=== PATIENT | male | born 1950 | race Hispanic/Latino ===

== ENCOUNTER 2018-12-30 14:49 | Emergency (ER) | payer OTHER ==
[2018-12-30] MEDS ORDERED: ONDANSETRON HCL 4 MG/2 ML VIAL ONE (15:08)
[2018-12-30 15:26] LABS: APPEARANCE,URINE Clear (CLEAR); BILIRUBIN,URINE Negative (NEGATIVE); COLOR,URINE Yellow (YELLOW); GLUCOSE, URINE (UA) >=1000 mg/dL (NEGATIVE); KETONES,URINE Negative (NEGATIVE); LEUKOCYTE ESTERASE ,URINE Small (NEGATIVE); NITRATE,URINE Negative (NEGATIVE); OCCULT BLOOD,URINE Negative (NEGATIVE); PROTEIN,URINE Negative (NEGATIVE)
[2018-12-30 15:33] LABS: BASOPHILS % (AUTO) 0.4 % (0.0-5.0); EOSINOPHILS % (AUTO) 0.5 % (0.0-8.0); HEMATOCRIT 43.2 % (42-54); LYMPHOCYTES % (AUTO) 10.2 % (21.0-51.0); MEAN CORPUSCULAR HEMOGLOBIN 30.8 pg (27.0-33.0); MEAN CORPUSCULAR VOLUME 90.7 fL (79-99); MONOCYTES % (AUTO) 6.2 % (3.0-13.0); NEUTROPHILS % (AUTO) 82.7 % (40.0-77.0); PLATELET COUNT (AUTO) 288 K/uL (130-400); RED BLOOD CELL COUNT(AUTO) 4.77 MIL/uL (4.50-6.20); RED CELL DISTRIBUTION WIDTH 14.1 % (11.0-15.5); WHITE BLOOD COUNT (AUTO) 13.4 K/uL (4.8-10.8)
[2018-12-30 15:39] LABS: BACTERIA,URINE Few /HPF (None Seen); RBC,URINE 0-1 /HPF (0-1)
[2018-12-30 15:40] LABS: SQUAMOUS EPITHELIAL CELL,UR Few /HPF (0-2); YEAST,URINE BUDDING Few /HPF (None Seen)
[2018-12-30 15:54] LABS: AMYLASE 57 U/L (25-115); CREATINE KINASE, TOTAL 27 U/L (21-232); LIPASE 226 U/L (114-286)
[2018-12-30] MEDS ORDERED: FAMOTIDINE/PF 20 MG/2 ML VIAL IV ONE (17:32)
[2018-12-30] MEDS ORDERED: AMOXICILLIN/POTASSIUM CLAV 875-125 TABLET PO ONE (17:32)
== END 2018-12-30 18:02 | disposition home or self-care (01) ==
LOC: EDH 14:49
DX: K85.90 Acute pancreatitis without necrosis or infection, unspecified (principal); D72.829 Elevated white blood cell count, unspecified; E11.9 Type 2 diabetes mellitus without complications; I10 Essential (primary) hypertension; R11.2 Nausea with vomiting, unspecified; E78.5 Hyperlipidemia, unspecified; Z79.4 Long term (current) use of insulin; Z87.891 Personal history of nicotine dependence; Z88.1 Allergy status to other antibiotic agents; Z88.8 Allergy status to other drugs, medicaments and biological substances; Z91.041 Radiographic dye allergy status
CPT/HCPCS: 36415; 71045; 74176; 81001; 82150; 82550; 83605; 83690; 84484; 85025; 87040 ×2; 87088; 93005; 96361; 96374; 96375; 99285; J2405; J3490

== ENCOUNTER → 2019-09-17 | Outpatient (CLI) | payer OTHER | END | disposition home or self-care (01) | LOC: SHCH 09:51 | PROVIDERS: ATTEND Internal Medicine Cardiovascular Disease | DX: R07.9 Chest pain, unspecified (principal); I10 Essential (primary) hypertension | CPT/HCPCS: 93306; 93356 ==

== ENCOUNTER → 2019-09-29 | Outpatient (CLI) | payer OTHER ==
--- NOTE | 2019-09-26 09:29 | NUR ---
PT WAS R/S FOR A NEW DOS R/T DRANK COFFEE THIS AM
[~2019-09-29] VITALS: Ht 175.3 cm; Wt 94.8 kg
[~2019-09-29] MED LIST: REGADENOSON 0.4 MG/5 ML PF SYG IVP SCH
== END | disposition home or self-care (01) ==
LOC: SHCH 09-26 08:18
PROVIDERS: ATTEND Internal Medicine Cardiovascular Disease
DX: R07.9 Chest pain, unspecified (principal)
CPT/HCPCS: 78452; 93017; 96374; A9500 ×2; J2785

== ENCOUNTER 2020-02-20 14:32 | Inpatient (IN) | payer OTHER ==
[~2020-02-20] VITALS: Ht 175.3 cm; Wt 96.8 kg
[2020-02-20 16:13] LABS: APPEARANCE,URINE Cloudy (CLEAR); BILIRUBIN,URINE Small (NEGATIVE); COLOR,URINE Dark Yellow (YELLOW); GLUCOSE, URINE (UA) >=1000 mg/dL (NEGATIVE); KETONES,URINE 15 mg/dL (NEGATIVE); LEUKOCYTE ESTERASE ,URINE Negative (NEGATIVE); NITRATE,URINE Negative (NEGATIVE); OCCULT BLOOD,URINE Negative (NEGATIVE); PH,URINE 5.5 (5.0-8.0); PROTEIN,URINE 300 mg/dL (NEGATIVE)
[2020-02-20 16:18] LABS: EOSINOPHILS % (AUTO) 1.7 % (0.0-8.0); HEMATOCRIT 45.1 % (42-54); LYMPHOCYTES % (AUTO) 9.7 % (21.0-51.0); MEAN CORPUSCULAR HEMOGLOBIN 29.9 pg (27.0-33.0); MEAN CORPUSCULAR HGB CONC 34.4 g/dL (32.0-36.0); MEAN CORPUSCULAR VOLUME 87.1 fL (79-99); MONOCYTES % (AUTO) 4.8 % (3.0-13.0); NEUTROPHILS % (AUTO) 83.6 % (40.0-77.0); PLATELET COUNT (AUTO) 169 K/uL (130-400); RED BLOOD CELL COUNT(AUTO) 5.18 MIL/uL (4.50-6.20); RED CELL DISTRIBUTION WIDTH 13.2 % (11.0-15.5)
[2020-02-20 16:23] LABS: BACTERIA,URINE Few /HPF (None Seen); MUCUS,URINE Moderate LPF (None Seen); RBC,URINE 0-1 /HPF (0-1); SQUAMOUS EPITHELIAL CELL,UR Moderate /HPF (0-2)
[2020-02-20 16:25] LABS: HYALINE CASTS, URINE 0-1 /LPF (0-1 /LPF)
[2020-02-20 16:32] LABS: INR 0.95 (0.85-1.15); PARTIAL THROMBOPLASTIN TIME 30.2 SEC (26.3-35.5); PROTHROMBIN TIME 10.3 SEC (9.6-11.6)
[2020-02-20 16:42] LABS: CARBON DIOXIDE 26 mmol/L (21-32); CHLORIDE 96 mmol/L (101-111); CREATININE 1.1 mg/dL (0.5-1.5); GLOMERULAR FILTR. RATE CALC 70 mL/min (>60); GLUCOSE,RANDOM 220 mg/dL (70-105); POTASSIUM 3.4 mmol/L (3.5-5.1); SODIUM SERUM 132 mmol/L (136-145); UREA NITROGEN, BLOOD 13 mg/dL (7-18)
[2020-02-20 16:54] LABS: ALANINE AMINOTRANSFERASE 15 U/L (12-78); ALBUMIN 3.3 g/dL (3.5-5.0); ASPARTATE AMINOTRANSFERASE 21 U/L (10-37); BILIRUBIN,TOTAL 0.4 mg/dL (0.2-1.0); CREATINE KINASE, TOTAL 153 U/L (21-232); MYOGLOBIN 72 ng/mL (10-92); TOTAL PROTEIN, SERUM 7.8 g/dL (6.0-8.3); TROPONIN I < 0.04 ng/mL (0.00-0.06)
[2020-02-20 16:59] LABS: ABG BASE EXCESS 0.3 mmol/L (-2.0-3.0); ABG HCO3 23.1 mmol/L (21.0-28.0); ABG OXYGEN SATURATION 96.5 % (95.0-99.0); ABG PCO2 33 mmHg (35-48)
[2020-02-20] MEDS ORDERED: POTASSIUM CHLORIDE 20 MEQ ERTAB PO ONE (19:25)
[2020-02-20] MEDS ORDERED: ACETAMINOPHEN 325 MG TAB ONE (19:25)
[2020-02-20] MEDS ORDERED: ACETAMINOPHEN 325 MG TAB PO PRN ×2 (19:30)
[2020-02-20] MEDS ORDERED: DOXYCYCLINE 100MG+NS 250ML IV SCH (19:30)
[2020-02-20] MEDS ORDERED: ONDANSETRON HCL 4 MG/2 ML VIAL IV PRN (19:30)
[2020-02-20] MEDS ORDERED: ERGOCALCIFEROL (VITAMIN D2) 50,000 UNIT CAPSULE PO ONE (20:30)
[2020-02-20] MEDS: DOXYCYCLINE HYCLATE 100 MG TABLET PO SCH (21:00)
[2020-02-21] MEDS ORDERED: ERGOCALCIFEROL (VITAMIN D2) 50,000 UNIT CAPSULE ONE (04:17)
[2020-02-21 06:48] LABS: BASOPHILS % (AUTO) 0.2 % (0.0-5.0); HEMATOCRIT 43.7 % (42-54); LYMPHOCYTES % (AUTO) 15.3 % (21.0-51.0); MEAN CORPUSCULAR HEMOGLOBIN 29.2 pg (27.0-33.0); MEAN CORPUSCULAR HGB CONC 33.9 g/dL (32.0-36.0); MEAN CORPUSCULAR VOLUME 86.4 fL (79-99); MONOCYTES % (AUTO) 5.5 % (3.0-13.0); NEUTROPHILS % (AUTO) 78.7 % (40.0-77.0); PLATELET COUNT (AUTO) 157 K/uL (130-400); RED BLOOD CELL COUNT(AUTO) 5.06 MIL/uL (4.50-6.20); RED CELL DISTRIBUTION WIDTH 13.3 % (11.0-15.5)
[2020-02-21 07:31] LABS: ALANINE AMINOTRANSFERASE 12 U/L (12-78); ASPARTATE AMINOTRANSFERASE 23 U/L (10-37); BILIRUBIN,TOTAL 0.4 mg/dL (0.2-1.0); CARBON DIOXIDE 26 mmol/L (21-32); CHLORIDE 97 mmol/L (101-111); CREATININE 0.9 mg/dL (0.5-1.5); GLOMERULAR FILTR. RATE CALC 89 mL/min (>60); GLUCOSE,RANDOM 168 mg/dL (70-105); LACTATE DEHYDROGENASE 242 U/L (81-234); POTASSIUM 3.7 mmol/L (3.5-5.1); SODIUM SERUM 133 mmol/L (136-145); TOTAL PROTEIN, SERUM 7.3 g/dL (6.0-8.3); UREA NITROGEN, BLOOD 14 mg/dL (7-18)
[2020-02-21] MEDS: DOXYCYCLINE HYCLATE 100 MG TABLET PO SCH ×2 (09:00→21:00)
[2020-02-21] MEDS: FAMOTIDINE/PF 20 MG/2 ML VIAL IV SCH (09:00)
[2020-02-21] MEDS: ENOXAPARIN SODIUM 40 MG/0.4 ML SYRINGE SQ SCH (09:00)
[2020-02-21] MEDS: ASCORBIC ACID 500 MG TAB PO SCH (09:00)
[2020-02-21] MEDS ORDERED: ENOXAPARIN SODIUM 40 MG/0.4 ML SYRINGE SQ ONE (09:17)
[2020-02-21] MEDS ORDERED: ASCORBIC ACID 500 MG TAB ONE (09:17)
[2020-02-21] MEDS ORDERED: ZINC SULFATE 220 CAPSULE ONE (09:17)
[2020-02-21] MEDS ORDERED: FAMOTIDINE/PF 20 MG/2 ML VIAL IV ONE ×3 (09:18→21:55)
[2020-02-21] MEDS ORDERED: DOXYCYCLINE HYCLATE 100 MG TABLET PO ONE (11:25)
[2020-02-21] MEDS ORDERED: ACETAMINOPHEN 325 MG TAB ONE (11:26)
[2020-02-21] MEDS: ZINC SULFATE 220 CAPSULE PO SCH (12:00)
[2020-02-21] MEDS ORDERED: INSULIN HUMULIN R 100 UNIT/ML 3ML ONE ×2 (12:35→17:41)
--- NOTE | 2020-02-21 19:31 | NUR ---
CM NOTE CM attempted to reach patient to discuss d/c planning. One number in system [phone]. No answer. CM to reattempt phone call.
[2020-02-21] MEDS ORDERED: DEXAMETHASONE SOD PHOSPHATE 10MG/ML 1ML VIAL ONE (21:55)
[2020-02-22] MEDS ORDERED: ACETAMINOPHEN 325 MG TAB ONE (00:28)
[2020-02-22 07:57] LABS: ALBUMIN 2.8 g/dL (3.5-5.0); BILIRUBIN,TOTAL 0.3 mg/dL (0.2-1.0); CREATININE 1.2 mg/dL (0.5-1.5); POTASSIUM 4.6 mmol/L (3.5-5.1); TOTAL PROTEIN, SERUM 7.8 g/dL (6.0-8.3)
[2020-02-22 08:24] LABS: CRP QUANTITATIVE 259.9 mg/L (0.00-9.0)
[2020-02-22] MEDS ORDERED: DOXYCYCLINE HYCLATE 100 MG TABLET PO ONE ×2 (08:41→20:52)
[2020-02-22] MEDS ORDERED: DEXAMETHASONE SOD PHOSPHATE 4 MG/ML 1ML VIAL ONE ×2 (08:42→18:54)
[2020-02-22] MEDS ORDERED: ZINC SULFATE 220 CAPSULE ONE (08:42)
[2020-02-22] MEDS ORDERED: ASCORBIC ACID 500 MG TAB ONE (08:42)
[2020-02-22] MEDS ORDERED: ENOXAPARIN SODIUM 40 MG/0.4 ML SYRINGE SQ ONE (08:43)
[2020-02-22] MEDS ORDERED: FAMOTIDINE/PF 20 MG/2 ML VIAL IV ONE (08:43)
[2020-02-22] MEDS: ASCORBIC ACID 500 MG TAB PO SCH (09:00)
[2020-02-22] MEDS: DOXYCYCLINE HYCLATE 100 MG TABLET PO SCH ×2 (09:00→21:00)
[2020-02-22] MEDS: ENOXAPARIN SODIUM 40 MG/0.4 ML SYRINGE SQ SCH (09:00)
[2020-02-22] MEDS: FAMOTIDINE/PF 20 MG/2 ML VIAL IV SCH (09:00)
[2020-02-22] MEDS: DEXAMETHASONE SOD PHOSPHATE 4 MG/ML 1ML VIAL IVP SCH (09:00)
[2020-02-22 09:45] LABS: BASOPHILS % (AUTO) 0.4 % (0.0-5.0); EOSINOPHILS % (AUTO) 0.5 % (0.0-8.0); LYMPHOCYTES % (AUTO) 12.3 % (21.0-51.0); MEAN CORPUSCULAR HEMOGLOBIN 29.6 pg (27.0-33.0); MONOCYTES % (AUTO) 4.5 % (3.0-13.0); NEUTROPHILS % (AUTO) 81.9 % (40.0-77.0); PLATELET COUNT (AUTO) 148 K/uL (130-400); RED CELL DISTRIBUTION WIDTH 13.2 % (11.0-15.5); WHITE BLOOD COUNT (AUTO) 5.5 K/uL (4.8-10.8)
[2020-02-22] MEDS: ZINC SULFATE 220 CAPSULE PO SCH (12:00)
--- NOTE | 2020-02-22 19:42 | NUR ---
CM NOTE SW attempted to contact patient and spouse by calling phone numbers on face sheet but there was no answer. CM to follow up with family or patient.
[2020-02-22] MEDS ORDERED: GUAIFENESIN SUGAR-FREE 100 MG/5 ML UDCUP ONE (20:52)
[2020-02-23] MEDS ORDERED: ZOSYN 3.375GM+NS 50ML 50 ML IV ONE (02:46)
[2020-02-23] MEDS ORDERED: INSULIN HUMULIN R 100 UNIT/ML 3ML ONE ×2 (06:16→11:13)
[2020-02-23 06:48] LABS: BASOPHILS % (AUTO) 0.1 % (0.0-5.0); HEMATOCRIT 43.4 % (42-54); LYMPHOCYTES % (AUTO) 7.4 % (21.0-51.0); MEAN CORPUSCULAR HEMOGLOBIN 28.8 pg (27.0-33.0); MEAN CORPUSCULAR HGB CONC 33.9 g/dL (32.0-36.0); MEAN CORPUSCULAR VOLUME 85.1 fL (79-99); PLATELET COUNT (AUTO) 166 K/uL (130-400); RED CELL DISTRIBUTION WIDTH 13.2 % (11.0-15.5); WHITE BLOOD COUNT (AUTO) 8.5 K/uL (4.8-10.8)
[2020-02-23] MEDS: INSULIN HUMULIN R 100 UNIT/ML 3ML SQ SCH ×4 (07:30→21:16)
[2020-02-23 07:32] LABS: ALBUMIN 2.8 g/dL (3.5-5.0); BILIRUBIN,TOTAL 0.4 mg/dL (0.2-1.0); CREATININE 1.1 mg/dL (0.5-1.5); POTASSIUM 4.5 mmol/L (3.5-5.1); TOTAL PROTEIN, SERUM 7.6 g/dL (6.0-8.3)
[2020-02-23 08:34] LABS: CRP QUANTITATIVE 162.2 mg/L (0.00-9.0)
[2020-02-23] MEDS: FAMOTIDINE/PF 20 MG/2 ML VIAL IV SCH (09:00)
[2020-02-23] MEDS: ASCORBIC ACID 500 MG TAB PO SCH (09:00)
[2020-02-23] MEDS: DOXYCYCLINE HYCLATE 100 MG TABLET PO SCH ×2 (09:00→21:15)
[2020-02-23] MEDS: ENOXAPARIN SODIUM 40 MG/0.4 ML SYRINGE SQ SCH (09:00)
[2020-02-23] MEDS: DEXAMETHASONE SOD PHOSPHATE 4 MG/ML 1ML VIAL IVP SCH ×2 (09:00→13:44)
[2020-02-23] MEDS ORDERED: DOXYCYCLINE HYCLATE 100 MG TABLET PO ONE (11:11)
[2020-02-23] MEDS ORDERED: ASCORBIC ACID 500 MG TAB ONE (11:11)
[2020-02-23] MEDS ORDERED: DEXAMETHASONE 4 MG TAB ONE (11:12)
[2020-02-23] MEDS ORDERED: ZINC SULFATE 220 CAPSULE ONE (11:12)
[2020-02-23] MEDS ORDERED: FAMOTIDINE 20MG TAB 20 MG TAB ONE (11:12)
[2020-02-23] MEDS ORDERED: ENOXAPARIN SODIUM 40 MG/0.4 ML SYRINGE SQ ONE (11:12)
--- NOTE | 2020-02-23 11:20 | NUR ---
CALL REC'D FROM SPOUSE KATEY MACKEY STATES PATIENT IS INDEPENDENT ACTIVE , MOBILE NO DME, 'DROVE HIMESELF TO HOSPITAL' 'VERY STUBBORN,' AND 'ALREADY WANTS TO COME HOME', SO SPOUSE IS NOT TALKING OT HIM. DCP IS HOME, WHEN WEANED FROM O2 OR WHEN O2 AVAILABLE. CM TO FOLLOW . SPOUSE REPORTS SHE AND DAUGHTER GOT JUST GOT TESTED CM STRONGLY ADVISED HER TO SELF QUARANTINE Addendum: 02/23/20 at 1123 by MARQUITA SOTOMAYOR RN CM Amended: Links added.
[2020-02-23 12:30] VITALS: BP 163/110
[2020-02-23 15:28] VITALS: BP 152/81
[2020-02-23] MEDS: ZINC SULFATE 220 CAPSULE PO SCH (16:35)
--- NOTE | 2020-02-23 18:38 | NUR ---
Pt arrived to floor, admitted into room 224. Pt alert and conversant, exertional shortness of breath noted. Vitals recorded in EMR, intermittent productive cough reported. Per pt with coughing pt get anxious and has to calm himself down. Nicotine patch fell off, pharmacy alerted that new patch is needed. pt denies needs at time of assessment, call light and urinal placed within reach. Will monitor.
[2020-02-23 19:54] VITALS: BP 137/78
--- NOTE | 2020-02-23 21:15 | NUR ---
BS 401 BS 401 PAGE TO ASSOCIATE PROFESSOR OF ENGLISH PROVIDER CHELSEA WILEY TO NOTIFY, GIVEN 8 UNITS HUMULIN R PER ORDER. AWAITING CALL BACK.
--- NOTE | 2020-02-23 22:14 | NUR ---
BS Return call from CHELSEA Gao notified of BS of isaura Jones now [phone]. Addendum: 02/24/20 at 0000 by ANA CAMACHO RN RN 7 UNITS REG INSULIN GIVEN PER SLIDING SCALE AND ORDER RECEIVED FOR LANTUS 5 UNITS BID TO START NOW.
[2020-02-23] MEDS ORDERED: INSULIN HUMULIN R 100 UNIT/ML 3ML SQ SCH (22:30)
[2020-02-23 23:39] VITALS: BP 142/79
[2020-02-23] MEDS: INSULIN GLARGINE 100 UNITS/ML 10 ML VIAL SQ SCH (23:58)
[2020-02-24 04:04] VITALS: BP 130/76
[2020-02-24 05:50] LABS: BASOPHILS % (AUTO) 0.1 % (0.0-5.0); HEMATOCRIT 43.5 % (42-54); LYMPHOCYTES % (AUTO) 8.9 % (21.0-51.0); MEAN CORPUSCULAR HEMOGLOBIN 29.6 pg (27.0-33.0); MEAN CORPUSCULAR HGB CONC 34.7 g/dL (32.0-36.0); MEAN CORPUSCULAR VOLUME 85.3 fL (79-99); MONOCYTES % (AUTO) 4.8 % (3.0-13.0); NEUTROPHILS % (AUTO) 85.7 % (40.0-77.0); PLATELET COUNT (AUTO) 189 K/uL (130-400); RED CELL DISTRIBUTION WIDTH 13.2 % (11.0-15.5)
[2020-02-24] MEDS: INSULIN HUMULIN R 100 UNIT/ML 3ML SQ SCH ×4 (06:03→20:42)
[2020-02-24 06:08] LABS: ALBUMIN 2.7 g/dL (3.5-5.0); BILIRUBIN,TOTAL 0.4 mg/dL (0.2-1.0); CRP QUANTITATIVE 166.6 mg/L (0.00-9.0); POTASSIUM 4.2 mmol/L (3.5-5.1); TOTAL PROTEIN, SERUM 7.4 g/dL (6.0-8.3)
[2020-02-24] MEDS: FAMOTIDINE/PF 20 MG/2 ML VIAL IV SCH (08:53)
[2020-02-24] MEDS: DEXAMETHASONE SOD PHOSPHATE 4 MG/ML 1ML VIAL IVP SCH (08:53)
[2020-02-24] MEDS: ASCORBIC ACID 500 MG TAB PO SCH (08:54)
[2020-02-24] MEDS: DOXYCYCLINE HYCLATE 100 MG TABLET PO SCH ×2 (08:54→20:42)
[2020-02-24] MEDS: ENOXAPARIN SODIUM 40 MG/0.4 ML SYRINGE SQ SCH (08:55)
[2020-02-24] MEDS: INSULIN GLARGINE 100 UNITS/ML 10 ML VIAL SQ SCH ×2 (09:00→20:40)
[2020-02-24 12:02] VITALS: BP 144/69
[2020-02-24] MEDS: ZINC SULFATE 220 CAPSULE PO SCH (12:49)
[2020-02-24 15:37] VITALS: BP 132/78
[2020-02-24 19:52] VITALS: BP 142/81
--- NOTE | 2020-02-24 20:38 | NUR ---
BS 391 BS OF 391, WILDLIFE CONSERVATIONIST PROVIDER SARINA ESTEBAN, CONTINUE WITH CURRENT ORDERS RECHECK IN ONE HOUR AND CALL WITH RESULTS. Addendum: 02/24/20 at 2219 by ANA CAMACHO RN RN RECHECK BS 320 ONCALL PROVIDER SARINA NOTIFMEGAN WILL REVIEW CHART AND LIKELY ORDER ADDITIONAL COVERAGE. Addendum: 02/24/20 at 2235 by ANA CAMACHO RN RN NOTED NEW INSULIN ORDERS TO BEGIN TOMORROW 02/25/2020, VERIFIED WITH WILDLIFE CONSERVATIONIST PROVIDER SARINA ALL ORDERS TO START TOMORROW DOES NOT WANT ADDITIONAL COVERAGE FOR TONIGHT.
[2020-02-24 23:06] VITALS: BP 135/79
[2020-02-25 04:06] VITALS: BP 151/85
[2020-02-25 05:58] LABS: BASOPHILS % (AUTO) 0.1 % (0.0-5.0); HEMATOCRIT 43.8 % (42-54); LYMPHOCYTES % (AUTO) 8.6 % (21.0-51.0); MEAN CORPUSCULAR HEMOGLOBIN 28.8 pg (27.0-33.0); MEAN CORPUSCULAR HGB CONC 33.6 g/dL (32.0-36.0); MEAN CORPUSCULAR VOLUME 85.9 fL (79-99); MONOCYTES % (AUTO) 4.1 % (3.0-13.0); NEUTROPHILS % (AUTO) 86.8 % (40.0-77.0); PLATELET COUNT (AUTO) 223 K/uL (130-400); RED CELL DISTRIBUTION WIDTH 13.2 % (11.0-15.5); WHITE BLOOD COUNT (AUTO) 9.6 K/uL (4.8-10.8)
[2020-02-25] MEDS: INSULIN HUMULIN R 100 UNIT/ML 3ML SQ SCH ×2 (06:16→11:56)
[2020-02-25 06:29] LABS: ALBUMIN 2.6 g/dL (3.5-5.0); BILIRUBIN,TOTAL 0.4 mg/dL (0.2-1.0); CRP QUANTITATIVE 117.7 mg/L (0.00-9.0); POTASSIUM 4.4 mmol/L (3.5-5.1); TOTAL PROTEIN, SERUM 7.4 g/dL (6.0-8.3)
[2020-02-25] MEDS ORDERED: INSULIN GLARGINE 100 UNITS/ML 10 ML VIAL SQ SCH ×2 (08:00→13:15)
[2020-02-25 08:30] VITALS: BP 144/99
[2020-02-25] MEDS ORDERED: PHARMACY COMMUNICATION**REMDESIVIR ORDER MISC SCH (09:15)
[2020-02-25] MEDS: FAMOTIDINE/PF 20 MG/2 ML VIAL IV SCH (09:17)
[2020-02-25] MEDS: DOXYCYCLINE HYCLATE 100 MG TABLET PO SCH ×2 (09:17→21:33)
[2020-02-25] MEDS: INSULIN LISPRO 100 UNIT/ML 3ML SQ SCH ×4 (09:23→21:34)
[2020-02-25] MEDS: METHYLPREDNISOLONE SOD SUCC 40MG/ML 1ML IVP SCH ×2 (10:51→17:13)
[2020-02-25] MEDS: ASCORBIC ACID 500 MG TAB PO SCH (10:51)
[2020-02-25] MEDS: ENOXAPARIN SODIUM 100 MG/1 ML SQ SCH (10:57)
[2020-02-25 11:00] VITALS: BP 151/76
[2020-02-25] MEDS: ZINC SULFATE 220 CAPSULE PO SCH (11:55)
[2020-02-25 16:00] VITALS: BP 119/79
[2020-02-25] MEDS ORDERED: INSULIN LISPRO 100 UNIT/ML 3ML SQ SCH (17:00)
[2020-02-25 19:50] VITALS: BP 147/90
--- NOTE | 2020-02-25 20:44 | NUR ---
BS/HR/TEMP BS 95, PT RECEIVED 20 UNITS LANTUS AT 1200 AND IS SCHEDULED NOW HAS NOT BEEN TAKING PO BUT IS ON D5 @ 75 ML. HR SUSTAINING 120S, TEMP 100.5 AXILLARY. FRAME TABLE OPERATOR HELPER PROVIDER CHELSEA BRANCH NOTIFIED OF ABOVE AND ORDERS RECEIVED TO HOLD LANTUS, INCREASE D5 TO 100 ML HR AND GIVE TYLENOL 650 X1. Addendum: 02/25/20 at 2226 by ANA CAMACHO RN RN DISREGARD ENTERED IN ERROR ON WRONG PATIENT.
[2020-02-26 00:28] VITALS: BP 133/82
[2020-02-26] MEDS: METHYLPREDNISOLONE SOD SUCC 40MG/ML 1ML IVP SCH ×3 (00:45→17:57)
--- NOTE | 2020-02-26 01:38 | NUR ---
PRONE NURSING STAFF HAVE BEEN ENCOURAGING PT TO LAY PRONE AND PT REPORTS HE HAS TONIGHT BUT STAFF HAVE YET TO SEE HIM LAY PRONE THROUGH WINDOW PT HAS ONLY LAID ON SIDES AND SUPINE. PT HAS BEEN COMPLIANT WITH ICS USE. WILL CONTINUE TO ENCOURAGE PRONE POSITION.
[2020-02-26 04:36] VITALS: BP 141/82
[2020-02-26 05:11] LABS: BASOPHILS % (AUTO) 0.1 % (0.0-5.0); HEMATOCRIT 47.1 % (42-54); LYMPHOCYTES % (AUTO) 9.6 % (21.0-51.0); MEAN CORPUSCULAR HEMOGLOBIN 28.6 pg (27.0-33.0); MEAN CORPUSCULAR HGB CONC 33.1 g/dL (32.0-36.0); MEAN CORPUSCULAR VOLUME 86.4 fL (79-99); MONOCYTES % (AUTO) 3.1 % (3.0-13.0); NEUTROPHILS % (AUTO) 86.8 % (40.0-77.0); PLATELET COUNT (AUTO) 263 K/uL (130-400); RED BLOOD CELL COUNT(AUTO) 5.45 MIL/uL (4.50-6.20); RED CELL DISTRIBUTION WIDTH 13.2 % (11.0-15.5); WHITE BLOOD COUNT (AUTO) 12.1 K/uL (4.8-10.8)
[2020-02-26 05:47] LABS: ALANINE AMINOTRANSFERASE 25 U/L (12-78); ALBUMIN 2.6 g/dL (3.5-5.0); ASPARTATE AMINOTRANSFERASE 27 U/L (10-37); BILIRUBIN,TOTAL 0.5 mg/dL (0.2-1.0); CARBON DIOXIDE 28 mmol/L (21-32); CHLORIDE 98 mmol/L (101-111); CREATININE 0.9 mg/dL (0.5-1.5); GLOMERULAR FILTR. RATE CALC 89 mL/min (>60); GLUCOSE,RANDOM 188 mg/dL (70-105); LACTATE DEHYDROGENASE 414 U/L (81-234); POTASSIUM 4.4 mmol/L (3.5-5.1); SODIUM SERUM 136 mmol/L (136-145); TOTAL PROTEIN, SERUM 7.8 g/dL (6.0-8.3); UREA NITROGEN, BLOOD 26 mg/dL (7-18)
[2020-02-26] MEDS: INSULIN LISPRO 100 UNIT/ML 3ML SQ SCH ×8 (06:36→21:07)
[2020-02-26 08:00] VITALS: BP 140/82
[2020-02-26] MEDS ORDERED: ENOXAPARIN SODIUM 1 MG/KG SQ SCH (09:00)
[2020-02-26] MEDS ORDERED: REMDESIVIR (INVESTIGATIONAL) 100 MG in SODIUM CHLORIDE 0.9% 250 ML IV SCH (09:15)
[2020-02-26] MEDS: DOXYCYCLINE HYCLATE 100 MG TABLET PO SCH ×2 (09:49→21:04)
[2020-02-26] MEDS: FAMOTIDINE/PF 20 MG/2 ML VIAL IV SCH (09:49)
[2020-02-26] MEDS: ASCORBIC ACID 500 MG TAB PO SCH (09:49)
[2020-02-26] MEDS: ENOXAPARIN SODIUM 100 MG/1 ML SQ SCH (09:49)
[2020-02-26] MEDS: INSULIN GLARGINE 100 UNITS/ML 10 ML VIAL SQ SCH (09:52)
[2020-02-26 11:00] VITALS: BP 127/86
[2020-02-26] MEDS: ZINC SULFATE 220 CAPSULE PO SCH (12:41)
[2020-02-26 16:00] VITALS: BP 124/61
[2020-02-26 20:00] VITALS: BP 139/66
--- NOTE | 2020-02-26 20:58 | NUR ---
O2 SAT PT ON CONTINUOUS PULSE OX NOTED 82-85% WHILE SLEEPING WITH NRB @ 15L, PER PT HE DOES HAVE SLEEP APNEA AND SLEEPS WITH CPAP NIGHTLY AT HOME. SPOKE WITH RT SUAREZ HE WILL EVAL FOR CPAP HERE AND ATTEMPT TO MERGE WITH O2. Addendum: 02/27/20 at 0156 by ANA CAMACHO RN RN NO IMPROVEMENT WITH CPAP AND 02 PT PLACED ON HIGH FLOW NC @ 10L AND NRB @15 WITH O2 SAT 90-92% WHILE ASLEEP.
[2020-02-27] VITALS: BP 177/83
[2020-02-27] MEDS: METHYLPREDNISOLONE SOD SUCC 40MG/ML 1ML IVP SCH ×2 (00:24→09:42)
[2020-02-27 04:00] VITALS: BP 142/71
[2020-02-27] MEDS: INSULIN LISPRO 100 UNIT/ML 3ML SQ SCH ×5 (06:37→20:49)
[2020-02-27 08:00] VITALS: BP 122/69
[2020-02-27] MEDS ORDERED: INSULIN LISPRO 100 UNIT/ML 3ML SQ SCH ×3 (08:00→15:15)
[2020-02-27 08:30] LABS: BASOPHILS % (AUTO) 0.1 % (0.0-5.0); HEMATOCRIT 44.4 % (42-54); LYMPHOCYTES % (AUTO) 8.2 % (21.0-51.0); MEAN CORPUSCULAR HEMOGLOBIN 29.2 pg (27.0-33.0); MEAN CORPUSCULAR HGB CONC 33.8 g/dL (32.0-36.0); MEAN CORPUSCULAR VOLUME 86.4 fL (79-99); MONOCYTES % (AUTO) 2.8 % (3.0-13.0); NEUTROPHILS % (AUTO) 88.3 % (40.0-77.0); PLATELET COUNT (AUTO) 282 K/uL (130-400); RED BLOOD CELL COUNT(AUTO) 5.14 MIL/uL (4.50-6.20); RED CELL DISTRIBUTION WIDTH 13.2 % (11.0-15.5); WHITE BLOOD COUNT (AUTO) 12.3 K/uL (4.8-10.8)
[2020-02-27 09:17] LABS: CARBON DIOXIDE 30 mmol/L (21-32); CHLORIDE 101 mmol/L (101-111); CREATININE 0.9 mg/dL (0.5-1.5); GLOMERULAR FILTR. RATE CALC 89 mL/min (>60); GLUCOSE,RANDOM 226 mg/dL (70-105); PHOSPHORUS 4.2 mg/dL (2.5-4.9); POTASSIUM 4.4 mmol/L (3.5-5.1); SODIUM SERUM 137 mmol/L (136-145); UREA NITROGEN, BLOOD 25 mg/dL (7-18)
[2020-02-27] MEDS: INSULIN GLARGINE 100 UNITS/ML 10 ML VIAL SQ SCH (09:39)
[2020-02-27] MEDS: ASCORBIC ACID 500 MG TAB PO SCH (09:41)
[2020-02-27] MEDS: FAMOTIDINE/PF 20 MG/2 ML VIAL IV SCH (09:41)
[2020-02-27] MEDS: DOXYCYCLINE HYCLATE 100 MG TABLET PO SCH ×2 (09:42→20:52)
[2020-02-27] MEDS: ENOXAPARIN SODIUM 100 MG/1 ML SQ SCH (09:42)
--- NOTE | 2020-02-27 10:58 | NUR ---
[facility] SENT EMAIL SAYING ACCEPTING PATIENTS AT [facility]. CALLED NO ANSWER WITH BIN CLEANER. LEFT INFO AND INFO FOR CALL BACK. Addendum: 02/27/20 at 1059 by JAN CARVAJAL RN CM Amended: Links added.
[2020-02-27 11:00] VITALS: BP 131/69
[2020-02-27] MEDS: ZINC SULFATE 220 CAPSULE PO SCH (12:22)
[2020-02-27] MEDS ORDERED: METHYLPREDNISOLONE SOD SUCC 125MG/2ML VIAL IVP SCH (13:00)
[2020-02-27 16:00] VITALS: BP 136/75
--- NOTE | 2020-02-27 16:18 | NUR ---
RDSCREEN - LOS X 7 Pt with positive COVID-19. GI soft diet order with no report of GI distress. PO intake 50-75%. Pt with prone positionaing, pending Plasma Tx per EMR. Obesity Class I. WBC 12.3, BG 258, Alb 2.6. Recommend 75gm CC diet modification Recommend 60mL ProMod QD Recommend 500mg Vitamin C BID RD to continue to monitor. Please notify as additional nutrition concerns arise. Thank you.
--- NOTE | 2020-02-27 18:39 | NUR ---
PT ASSISTED TO PRONE THROUGHOUT THE DAY. SPO2 95-97% WHEN PRONE, SPO2 89-92% WHEN SUPINE. PT DENIES PAIN, EXTRA PILLOWS PROVIDED FOR COMFORT. PT REQUESTING TO SIT IN BEDSIDE CHAIR FOR DINNER, SP O2 92%. NO DISTRESS NOTED.
[2020-02-27 20:00] VITALS: BP 155/89
[2020-02-27] MEDS: DEXAMETHASONE SOD PHOSPHATE 4 MG/ML 1ML VIAL IV SCH (20:51)
[2020-02-28] VITALS: BP 161/83
[2020-02-28 04:00] VITALS: BP 121/67
--- NOTE | 2020-02-28 05:19 | NUR ---
PM SHIFT SUMMARY PT ON NRB AND HIGH FLOW O2 SAT 99%. PT ATTEMPTING PRONE POSITION WHILE SLEEPING MAINTAINING 02 SAT, WEANED OFF NRB AND MAINTAINING 02 SAT 92-96%. NO OTHER CHANGES IN DOCUMENTED SHIFT ASSESSMENT/ACUTE EVENTS.
[2020-02-28 05:54] LABS: BASOPHILS % (AUTO) 0.2 % (0.0-5.0); HEMATOCRIT 45.5 % (42-54); LYMPHOCYTES % (AUTO) 9.3 % (21.0-51.0); MEAN CORPUSCULAR HEMOGLOBIN 28.7 pg (27.0-33.0); MEAN CORPUSCULAR HGB CONC 33.4 g/dL (32.0-36.0); PLATELET COUNT (AUTO) 317 K/uL (130-400); RED BLOOD CELL COUNT(AUTO) 5.29 MIL/uL (4.50-6.20); RED CELL DISTRIBUTION WIDTH 13.2 % (11.0-15.5); WHITE BLOOD COUNT (AUTO) 13.3 K/uL (4.8-10.8)
[2020-02-28 06:06] LABS: ALBUMIN 2.4 g/dL (3.5-5.0); BILIRUBIN,TOTAL 0.4 mg/dL (0.2-1.0); CREATININE 0.9 mg/dL (0.5-1.5); TOTAL PROTEIN, SERUM 7.3 g/dL (6.0-8.3)
[2020-02-28] MEDS: INSULIN LISPRO 100 UNIT/ML 3ML SQ SCH ×7 (07:30→20:29)
[2020-02-28 08:00] VITALS: BP 159/78
[2020-02-28] MEDS: DOXYCYCLINE HYCLATE 100 MG TABLET PO SCH ×2 (08:51→20:30)
[2020-02-28] MEDS: DEXAMETHASONE SOD PHOSPHATE 4 MG/ML 1ML VIAL IV SCH (08:51)
[2020-02-28] MEDS: ASCORBIC ACID 500 MG TAB PO SCH (08:51)
[2020-02-28] MEDS: FAMOTIDINE/PF 20 MG/2 ML VIAL IV SCH (08:51)
[2020-02-28] MEDS: ENOXAPARIN SODIUM 100 MG/1 ML SQ SCH (08:52)
[2020-02-28] MEDS: INSULIN GLARGINE 100 UNITS/ML 10 ML VIAL SQ SCH (08:54)
[2020-02-28 11:00] VITALS: BP 171/82
[2020-02-28] MEDS: ZINC SULFATE 220 CAPSULE PO SCH (11:30)
--- NOTE | 2020-02-28 13:58 | NUR ---
DECREASED NC FLOW TO 25L 100% WITH NRB 100%. O2 SAT: 92%. ENCOURAGED PRONING BUT PATIENT REFUSED AT THIS TIME.
[2020-02-28 16:00] VITALS: BP 136/76
[2020-02-28] MEDS: METHYLPREDNISOLONE SOD SUCC 40MG/ML 1ML IVP SCH ×2 (16:32→23:23)
[2020-02-28 20:52] VITALS: BP 148/80
[2020-02-29 00:02] VITALS: BP 141/86
[2020-02-29 03:50] VITALS: BP 143/90
--- NOTE | 2020-02-29 05:31 | NUR ---
PM SHIFT SUMMARY PT A&OX3 ABLE TO MAKE NEEDS KNOWN. NRB ON AT 15L AND HIGH FLOW AT 25L 02 SATS 92-95%. PRONE POSITION ENCOURAGED PT SLEPT FOR FEW HOURS IN PRONE POSITION THEN REFUSING TO SLEEP IN PRONE OR SIDE LYING 02 SAT 85-88% HIGH FLOW INCREASED TO 35L 02 SAT 91%. NO OTHER CHANGES FROM BASELINE ASSESSMENT/SIGNIFICANT EVENT.
[2020-02-29 05:37] LABS: BASOPHILS % (AUTO) 0.1 % (0.0-5.0); HEMATOCRIT 43.1 % (42-54); LYMPHOCYTES % (AUTO) 5.9 % (21.0-51.0); MEAN CORPUSCULAR HEMOGLOBIN 28.7 pg (27.0-33.0); MEAN CORPUSCULAR HGB CONC 33.2 g/dL (32.0-36.0); MEAN CORPUSCULAR VOLUME 86.4 fL (79-99); NEUTROPHILS % (AUTO) 90.6 % (40.0-77.0); PLATELET COUNT (AUTO) 309 K/uL (130-400); RED BLOOD CELL COUNT(AUTO) 4.99 MIL/uL (4.50-6.20); RED CELL DISTRIBUTION WIDTH 13.2 % (11.0-15.5); WHITE BLOOD COUNT (AUTO) 12.8 K/uL (4.8-10.8)
[2020-02-29 06:00] LABS: ALBUMIN 2.2 g/dL (3.5-5.0); BILIRUBIN,TOTAL 0.5 mg/dL (0.2-1.0); CREATININE 0.9 mg/dL (0.5-1.5); POTASSIUM 4.2 mmol/L (3.5-5.1); TOTAL PROTEIN, SERUM 6.9 g/dL (6.0-8.3)
[2020-02-29] MEDS: INSULIN LISPRO 100 UNIT/ML 3ML SQ SCH ×7 (06:12→20:58)
[2020-02-29] MEDS: METHYLPREDNISOLONE SOD SUCC 40MG/ML 1ML IVP SCH ×5 (06:55→23:15)
[2020-02-29 07:00] VITALS: BP 142/71
[2020-02-29] MEDS: ENOXAPARIN SODIUM 100 MG/1 ML SQ SCH (08:08)
[2020-02-29] MEDS: ASCORBIC ACID 500 MG TAB PO SCH (08:08)
[2020-02-29] MEDS: FAMOTIDINE/PF 20 MG/2 ML VIAL IV SCH (08:08)
[2020-02-29] MEDS: DOXYCYCLINE HYCLATE 100 MG TABLET PO SCH ×2 (08:08→21:47)
[2020-02-29] MEDS: INSULIN GLARGINE 100 UNITS/ML 10 ML VIAL SQ SCH (08:15)
[2020-02-29 11:00] VITALS: BP 136/73
[2020-02-29] MEDS ORDERED: REMDESIVIR (INVESTIGATIONAL) 200 MG/250 ML NS IV SCH (11:30)
[2020-02-29] MEDS: ZINC SULFATE 220 CAPSULE PO SCH (13:41)
[2020-02-29 15:00] VITALS: BP 140/83
[2020-02-29 20:30] VITALS: BP 151/78
[2020-03-01] VITALS (7 sets, daily range): BP systolic 129–151; BP diastolic 62–86
[2020-03-01 05:32] LABS: BASOPHILS % (AUTO) 0.1 % (0.0-5.0); HEMATOCRIT 44.1 % (42-54); LYMPHOCYTES % (AUTO) 3.4 % (21.0-51.0); MEAN CORPUSCULAR HEMOGLOBIN 29.1 pg (27.0-33.0); MEAN CORPUSCULAR HGB CONC 33.1 g/dL (32.0-36.0); MEAN CORPUSCULAR VOLUME 87.8 fL (79-99); NEUTROPHILS % (AUTO) 93.6 % (40.0-77.0); PLATELET COUNT (AUTO) 337 K/uL (130-400); RED BLOOD CELL COUNT(AUTO) 5.02 MIL/uL (4.50-6.20); RED CELL DISTRIBUTION WIDTH 13.2 % (11.0-15.5); WHITE BLOOD COUNT (AUTO) 16.2 K/uL (4.8-10.8)
[2020-03-01] MEDS: INSULIN LISPRO 100 UNIT/ML 3ML SQ SCH ×7 (05:44→20:28)
[2020-03-01] MEDS: METHYLPREDNISOLONE SOD SUCC 40MG/ML 1ML IVP SCH ×3 (05:44→17:32)
[2020-03-01 06:24] LABS: ALBUMIN 2.2 g/dL (3.5-5.0); BILIRUBIN,TOTAL 0.5 mg/dL (0.2-1.0); CREATININE 0.8 mg/dL (0.5-1.5); POTASSIUM 4.3 mmol/L (3.5-5.1); TOTAL PROTEIN, SERUM 6.7 g/dL (6.0-8.3)
[2020-03-01] MEDS: INSULIN GLARGINE 100 UNITS/ML 10 ML VIAL SQ SCH (08:00)
[2020-03-01] MEDS: DOXYCYCLINE HYCLATE 100 MG TABLET PO SCH (09:05)
[2020-03-01] MEDS: ASCORBIC ACID 500 MG TAB PO SCH (09:05)
[2020-03-01] MEDS: FAMOTIDINE/PF 20 MG/2 ML VIAL IV SCH (09:05)
[2020-03-01] MEDS: ENOXAPARIN SODIUM 100 MG/1 ML SQ SCH (09:07)
[2020-03-01] MEDS ORDERED: COMPOUND IV REFRIGERATED 1 EACH IVSOLN MISC PRN (12:00)
[2020-03-01] MEDS: REMDESIVIR (INVESTIGATIONAL) 100 MG/250ML NS IV SCH (12:39)
[2020-03-01] MEDS: ZINC SULFATE 220 CAPSULE PO SCH (12:40)
[2020-03-02] MEDS: METHYLPREDNISOLONE SOD SUCC 40MG/ML 1ML IVP SCH ×5 (00:12→23:39)
[2020-03-02 05:29] VITALS: BP 136/71
[2020-03-02] MEDS: INSULIN LISPRO 100 UNIT/ML 3ML SQ SCH ×7 (07:14→20:10)
[2020-03-02 08:48] VITALS: BP 116/83
[2020-03-02] MEDS: FAMOTIDINE/PF 20 MG/2 ML VIAL IV SCH (09:02)
[2020-03-02] MEDS: ASCORBIC ACID 500 MG TAB PO SCH (09:02)
[2020-03-02] MEDS: ENOXAPARIN SODIUM 100 MG/1 ML SQ SCH (09:03)
[2020-03-02] MEDS: INSULIN GLARGINE 100 UNITS/ML 10 ML VIAL SQ SCH (09:15)
[2020-03-02] MEDS: GUAIFENESIN-DM 200/20 MG 10 ML PO PRN (09:58)
--- NOTE | 2020-03-02 10:38 | NUR ---
PT'S DAUGHTER CALLED TO CHECK ON HIM; I GAVE HER AN UPDATE ON HIM; SHE MENTIONED TO ME THAT HE IS ALLERGIC TO FISH; I ADDED TO HIS DIET ORDER THE FISH ALLERGY. PT TOLERATED LAYING PRONE FOR ABOUT 30 MINUTES, HE STATES HIS BACK HURTS TO MUCH TO LIE THAT WAY; HIS O2 SATS WERE ABOUT 93% WHEN LYING ON BACK; I HAVE HELPED HIM BACK ONTO HIS BACK AND RE-ARRANGED ALL HIS TUBING AND PILLOWS; WILL CONT. TO MONITOR.
[2020-03-02 11:38] VITALS: BP 137/74
[2020-03-02] MEDS: ZINC SULFATE 220 CAPSULE PO SCH (12:12)
[2020-03-02] MEDS: REMDESIVIR (INVESTIGATIONAL) 100 MG/250ML NS IV SCH (12:12)
--- NOTE | 2020-03-02 15:39 | NUR ---
[facility] Spoke to Larissa with [place] ph: [phone] re: qualification to transfer to [place] for prolonged hospital stay. [facility] will get with Dewey Robles and will contact CM with form to see if patient would be an appropriate transfer. CM to continue to follow. CD Addendum: 03/02/20 at 1540 by BISHOP JOSEPH CM Amended: Links added.
[2020-03-02 16:09] VITALS: BP 136/59
--- NOTE | 2020-03-02 18:36 | NUR ---
shift summary; pt remained on non rebreather face mask and high flow oxygen throughout the day; when he would remove mask and leave high flow nasal canula only on to eat his O2 sats would drop into the low 80's ; he got up to bedside commode this afternoon for bowel movement and he stated just those 2 steps really wore him out; he stated his iv was hurting him and it is the original once since admission so i have removed it and placed a new iv access; pt is aox3 but still needs reinforcement on the seriousness of his condition, he is hoping he will be better by tomorrow he states so he can go home; i will cont to educate him on how to assist himself with treatment such as laying prone and wearing oxygen and taking all of his medications; pt laid prone a few times today but did not tolerate it well; his best oxygen sat levels where when he was sitting on the edge of bed--95%; he sat on edge of bed for all meals and ate 100% of all meals.
[2020-03-02 20:00] VITALS: BP 153/84
--- NOTE | 2020-03-02 21:54 | NUR ---
ASSESSMENT PT A & OX3 ABLE TO MAKE NEEDS KNOWN. ON 15 L NRB AND HIGH FLOW NC 30 L 100% FIO2 02 SAT 90% WHILE SUPINE INCREASED TO 94-95 WHEN SIDE LAYING. PT ENCOURAGED TO PRONE POSITION WHILE SLEEPING. DENIES ANY NEEDS OR CONCERNS. CALL GARDUNO IN REACH BED LOW AND LOCKED.
[2020-03-03 04:00] VITALS: BP 153/81
[2020-03-03] MEDS: INSULIN LISPRO 100 UNIT/ML 3ML SQ SCH ×7 (05:38→20:46)
[2020-03-03] MEDS: METHYLPREDNISOLONE SOD SUCC 40MG/ML 1ML IVP SCH ×3 (05:43→18:05)
[2020-03-03 06:16] LABS: BASOPHILS % (AUTO) 0.2 % (0.0-5.0); HEMATOCRIT 44.5 % (42-54); LYMPHOCYTES % (AUTO) 2.3 % (21.0-51.0); MEAN CORPUSCULAR HEMOGLOBIN 28.6 pg (27.0-33.0); MEAN CORPUSCULAR HGB CONC 33.3 g/dL (32.0-36.0); MEAN CORPUSCULAR VOLUME 86.1 fL (79-99); NEUTROPHILS % (AUTO) 94.8 % (40.0-77.0); PLATELET COUNT (AUTO) 275 K/uL (130-400); RED BLOOD CELL COUNT(AUTO) 5.17 MIL/uL (4.50-6.20); RED CELL DISTRIBUTION WIDTH 13.1 % (11.0-15.5); WHITE BLOOD COUNT (AUTO) 19.2 K/uL (4.8-10.8)
[2020-03-03 06:24] LABS: ALBUMIN 2.1 g/dL (3.5-5.0); BILIRUBIN,TOTAL 0.5 mg/dL (0.2-1.0); CREATININE 0.7 mg/dL (0.5-1.5); CRP QUANTITATIVE 23.8 mg/L (0.00-9.0); POTASSIUM 4.2 mmol/L (3.5-5.1); TOTAL PROTEIN, SERUM 6.4 g/dL (6.0-8.3)
[2020-03-03] MEDS: INSULIN GLARGINE 100 UNITS/ML 10 ML VIAL SQ SCH (07:27)
[2020-03-03 08:30] VITALS: BP 148/84
[2020-03-03] MEDS: GUAIFENESIN-DM 200/20 MG 10 ML PO PRN (08:46)
[2020-03-03] MEDS: ASCORBIC ACID 500 MG TAB PO SCH (08:46)
[2020-03-03] MEDS: FAMOTIDINE/PF 20 MG/2 ML VIAL IV SCH (08:46)
[2020-03-03] MEDS: ENOXAPARIN SODIUM 100 MG/1 ML SQ SCH (08:47)
[2020-03-03] MEDS: ZINC SULFATE 220 CAPSULE PO SCH (11:29)
[2020-03-03 12:00] VITALS: BP 121/59
--- NOTE | 2020-03-03 12:32 | NUR ---
I INFORMED DR WILLIAMSON WHO IS ROUNDING OF ELEVATED D-DIMER OF 1021 AND HE GAVE ME VERBAL ORDER TO INCREASE LOVENOX TO 90 MG SQ BID INSTEADE OF DAILY.
[2020-03-03] MEDS: REMDESIVIR (INVESTIGATIONAL) 100 MG/250ML NS IV SCH (12:55)
[2020-03-03] MEDS ORDERED: SODIUM CHLORIDE 0.9% 250 ML IV ONE (13:08)
--- NOTE | 2020-03-03 13:29 | NUR ---
I SPOKE TO BLOOD BANK AND IN REGARDS TO PLASMA THEY DO HAVE 1 UNIT OF AB BLOOD TYPE AVAILABLE BUT THEY NEED TO DRAW A NEW TYPE AND CROSS; THEY ARE GOING TO DO THAT NOW.
--- NOTE | 2020-03-03 15:17 | NUR ---
1 UNIT OF CONVALESCENT PLASMA GIVEN.
[2020-03-03 15:30] VITALS: BP 140/81
--- NOTE | 2020-03-03 17:27 | NUR ---
SHIFT SUMMARY; PT WAS NOT ABLE TO DECREASE ON HIS CURRENT OXYGEN USE; HE REMAINS AT 30L HIGH FLOW OXYGEN AND NON REBREATHER MASK AT 15L, PT SAT 92 % WITH THIS; PT ASSISTED TO LAY PRONE SEVERAL TIMES TODAY; DR WILLIAMSON ADJUSTED PT'S LOVENOX ANTICOUGULANT DUE TO PT'S ELEVATED D-DIMER; I SPOKE FOR APPROX. 10 MINUTES ON THE PHONE WITH PT'S DAUGHTER AND UPDATED HER ON HIS CONDITION, I MENTIONED TO HER THE POSSIBILITY OF PT GOING TO [facility] IN [place] AND SHE STATED SHE WOULD TALK TO HER MOM ABOUT THAT; WHEN I SPOKE LATER TO PT ABOUT IT HE STATED THAT HE DID NOT WANT TO GO TO [place] AND PREFERRED TO STAY WHERE HE IS AT NOW TILL HE CAN GO HOME. PT ATE 100% OF ALL HIS MEALS; VOIDING DARK YELLOW URINE; RECEIVED 1 UNIT OF CONVALESCANT PLASMA THIS AFTERNOON, A SECOND UNIT WAS NOT AVAILABLE TO GIVE, NO REACTION NOTED TO THE PLASMA.
[2020-03-03 19:45] VITALS: BP 130/71
[2020-03-03] MEDS: ENOXAPARIN SODIUM 80 MG/0.8 ML SQ SCH (20:46)
[2020-03-03 23:16] VITALS: BP 144/75
[2020-03-04 03:26] VITALS: BP 131/78
--- NOTE | 2020-03-04 05:44 | NUR ---
PM SHIFT SUMMARY PT A & 0X3 ABLE MAKE NEEDS KNOWN. ON HIGH FLOW NC 30L 100% FIO2 AND NRB 15L. RT ATTEMPTED TO WEAN OFF NRB BUT UNSUCCESSFUL AND 02 SAT 85% WITHOUT, NRB WAS REAPPLIED O2 SAT RANGING FROM 88-94% DEPENDING ON PT POSITION. PT ENCOURAGED TO PRONE MUCH TOLERATED. NO CHANGES FROM BASELINE SHIFT ASSESSMENT/ACUTE EVENTS.
[2020-03-04] MEDS: METHYLPREDNISOLONE SOD SUCC 40MG/ML 1ML IVP SCH ×5 (05:49→23:53)
[2020-03-04] MEDS: INSULIN LISPRO 100 UNIT/ML 3ML SQ SCH ×7 (06:48→22:05)
[2020-03-04 08:00] VITALS: BP 136/79
[2020-03-04] MEDS: INSULIN GLARGINE 100 UNITS/ML 10 ML VIAL SQ SCH (08:30)
[2020-03-04] MEDS: ASCORBIC ACID 500 MG TAB PO SCH (09:54)
[2020-03-04] MEDS: FAMOTIDINE/PF 20 MG/2 ML VIAL IV SCH (09:55)
[2020-03-04] MEDS: ENOXAPARIN SODIUM 80 MG/0.8 ML SQ SCH (09:55)
[2020-03-04 11:00] VITALS: BP 135/81
[2020-03-04] MEDS: REMDESIVIR (INVESTIGATIONAL) 100 MG/250ML NS IV SCH (12:25)
[2020-03-04] MEDS: ZINC SULFATE 220 CAPSULE PO SCH (12:25)
[2020-03-04 15:00] VITALS: BP 154/89
[2020-03-04 19:04] VITALS: BP 148/89
[2020-03-04] MEDS: ENOXAPARIN SODIUM 100 MG/1 ML SQ SCH (21:10)
[2020-03-04 23:03] VITALS: BP 158/84
[2020-03-05 03:40] VITALS: BP 153/59
[2020-03-05 05:24] LABS: BASOPHILS % (AUTO) 0.1 % (0.0-5.0); LYMPHOCYTES % (AUTO) 1.5 % (21.0-51.0); MEAN CORPUSCULAR HEMOGLOBIN 29.3 pg (27.0-33.0); MEAN CORPUSCULAR HGB CONC 34.3 g/dL (32.0-36.0); MEAN CORPUSCULAR VOLUME 85.4 fL (79-99); MONOCYTES % (AUTO) 1.3 % (3.0-13.0); NEUTROPHILS % (AUTO) 96.1 % (40.0-77.0); PLATELET COUNT (AUTO) 234 K/uL (130-400); RED BLOOD CELL COUNT(AUTO) 5.15 MIL/uL (4.50-6.20); RED CELL DISTRIBUTION WIDTH 13.3 % (11.0-15.5); WHITE BLOOD COUNT (AUTO) 21.9 K/uL (4.8-10.8)
[2020-03-05 05:45] LABS: B-TYPE NATRIURETIC PEPTIDE 36 pg/mL (0-100)
[2020-03-05] MEDS: INSULIN LISPRO 100 UNIT/ML 3ML SQ SCH ×7 (05:51→20:55)
[2020-03-05 05:52] LABS: CREATININE 0.7 mg/dL (0.5-1.5); CRP QUANTITATIVE 38.6 mg/L (0.00-9.0); POTASSIUM 4.2 mmol/L (3.5-5.1)
[2020-03-05] MEDS: METHYLPREDNISOLONE SOD SUCC 40MG/ML 1ML IVP SCH ×3 (05:57→17:00)
[2020-03-05 08:00] VITALS: BP 122/80
[2020-03-05] MEDS: ENOXAPARIN SODIUM 100 MG/1 ML SQ SCH ×2 (09:58→20:53)
[2020-03-05] MEDS: ASCORBIC ACID 500 MG TAB PO SCH (09:58)
[2020-03-05] MEDS: FAMOTIDINE/PF 20 MG/2 ML VIAL IV SCH (09:58)
[2020-03-05 11:00] VITALS: BP 127/75
[2020-03-05] MEDS: ZINC SULFATE 220 CAPSULE PO SCH (12:00)
[2020-03-05] MEDS: INSULIN GLARGINE 100 UNITS/ML 10 ML VIAL SQ SCH ×3 (13:35→20:54)
[2020-03-05 16:00] VITALS: BP 147/87
[2020-03-05 20:44] VITALS: BP 148/85
[2020-03-05 23:55] VITALS: BP 143/96
[2020-03-06] MEDS: METHYLPREDNISOLONE SOD SUCC 40MG/ML 1ML IVP SCH ×4 (00:22→18:00)
[2020-03-06 03:50] VITALS: BP 156/98
[2020-03-06] MEDS: INSULIN LISPRO 100 UNIT/ML 3ML SQ SCH ×7 (05:16→20:37)
[2020-03-06 05:51] LABS: MEAN CORPUSCULAR HEMOGLOBIN 29.3 pg (27.0-33.0); MEAN CORPUSCULAR VOLUME 86.2 fL (79-99); PLATELET COUNT (AUTO) 213 K/uL (130-400); RED BLOOD CELL COUNT(AUTO) 5.22 MIL/uL (4.50-6.20); RED CELL DISTRIBUTION WIDTH 13.4 % (11.0-15.5); WHITE BLOOD COUNT (AUTO) 16.5 K/uL (4.8-10.8)
[2020-03-06 05:52] LABS: BASOPHILS % (AUTO) 0.1 % (0.0-5.0); LYMPHOCYTES % (AUTO) 1.9 % (21.0-51.0); MONOCYTES % (AUTO) 1.2 % (3.0-13.0); NEUTROPHILS % (AUTO) 96.1 % (40.0-77.0)
[2020-03-06 06:09] LABS: INR 1.07 (0.85-1.15); PARTIAL THROMBOPLASTIN TIME 32.1 SEC (26.3-35.5); PROTHROMBIN TIME 11.5 SEC (9.6-11.6)
[2020-03-06 06:20] LABS: B-TYPE NATRIURETIC PEPTIDE 45 pg/mL (0-100)
[2020-03-06 06:22] LABS: CREATININE 0.8 mg/dL (0.5-1.5); CRP QUANTITATIVE 44.8 mg/L (0.00-9.0)
[2020-03-06 08:00] VITALS: BP 159/92
[2020-03-06] MEDS: FAMOTIDINE/PF 20 MG/2 ML VIAL IV SCH (08:40)
[2020-03-06] MEDS: ASCORBIC ACID 500 MG TAB PO SCH (08:40)
[2020-03-06] MEDS: ENOXAPARIN SODIUM 100 MG/1 ML SQ SCH ×2 (08:42→20:36)
[2020-03-06 11:00] VITALS: BP 160/95
[2020-03-06] MEDS: ZINC SULFATE 220 CAPSULE PO SCH (12:46)
[2020-03-06 16:00] VITALS: BP 182/95
[2020-03-06] MEDS ORDERED: MORPHINE SULFATE 2 MG/ML 1ML SYG IVP PRN (17:45)
[2020-03-06] MEDS ORDERED: METOPROLOL TARTRATE 1 MG/ML 5ML VIAL IV SCH (17:45)
[2020-03-06] MEDS ORDERED: HYDRALAZINE HCL 20 MG/ML VIAL IM PRN (17:45)
[2020-03-06] MEDS: PHARMACY COMMUNICATION MISC SCH ×3 (18:00→21:38)
[2020-03-06] MEDS ORDERED: HYDRALAZINE HCL 20 MG/ML VIAL IV PRN (18:15)
[2020-03-06] MEDS: DOCUSATE SODIUM 100 MG CAP PO SCH (20:36)
[2020-03-06] MEDS: INSULIN GLARGINE 100 UNITS/ML 10 ML VIAL SQ SCH (20:37)
[2020-03-06 20:48] VITALS: BP 168/84
[2020-03-07] MEDS: METHYLPREDNISOLONE SOD SUCC 40MG/ML 1ML IVP SCH ×4 (00:05→18:12)
[2020-03-07] MEDS: HYDRALAZINE HCL 20 MG/ML VIAL IV PRN ×2 (00:06→08:48)
[2020-03-07 00:40] VITALS: BP 175/99
[2020-03-07] MEDS: PHARMACY COMMUNICATION MISC SCH ×13 (01:44→23:02)
[2020-03-07 04:28] VITALS: BP 159/81
[2020-03-07] MEDS: INSULIN LISPRO 100 UNIT/ML 3ML SQ SCH ×7 (05:46→21:00)
[2020-03-07 06:28] LABS: BASOPHILS % (AUTO) 0.1 % (0.0-5.0); HEMATOCRIT 45.3 % (42-54); LYMPHOCYTES % (AUTO) 1.9 % (21.0-51.0); MEAN CORPUSCULAR HEMOGLOBIN 29.1 pg (27.0-33.0); MEAN CORPUSCULAR VOLUME 85.6 fL (79-99); MONOCYTES % (AUTO) 1.4 % (3.0-13.0); NEUTROPHILS % (AUTO) 95.9 % (40.0-77.0); PLATELET COUNT (AUTO) 219 K/uL (130-400); RED BLOOD CELL COUNT(AUTO) 5.29 MIL/uL (4.50-6.20); RED CELL DISTRIBUTION WIDTH 13.7 % (11.0-15.5); WHITE BLOOD COUNT (AUTO) 19.1 K/uL (4.8-10.8)
[2020-03-07 07:02] LABS: CREATININE 0.9 mg/dL (0.5-1.5); CRP QUANTITATIVE 25.5 mg/L (0.00-9.0); POTASSIUM 4.2 mmol/L (3.5-5.1)
[2020-03-07 08:00] VITALS: BP 186/95
[2020-03-07 08:10] LABS: B-TYPE NATRIURETIC PEPTIDE 53 pg/mL (0-100)
[2020-03-07] MEDS: DOCUSATE SODIUM 100 MG CAP PO SCH ×2 (08:48→19:57)
[2020-03-07] MEDS: ASCORBIC ACID 500 MG TAB PO SCH (08:48)
[2020-03-07] MEDS: ENOXAPARIN SODIUM 100 MG/1 ML SQ SCH ×2 (08:48→19:58)
[2020-03-07] MEDS: FAMOTIDINE/PF 20 MG/2 ML VIAL IV SCH (08:48)
[2020-03-07] MEDS: BISACODYL 5 MG TABLET.DR PO SCH (08:48)
[2020-03-07 11:00] VITALS: BP 161/91
[2020-03-07] MEDS: ZINC SULFATE 220 CAPSULE PO SCH (14:25)
[2020-03-07 16:00] VITALS: BP 160/82
[2020-03-07 20:20] VITALS: BP 142/85
[2020-03-07] MEDS: INSULIN GLARGINE 100 UNITS/ML 10 ML VIAL SQ SCH (21:00)
[2020-03-08] VITALS (7 sets, daily range): BP systolic 113–162; BP diastolic 74–86
[2020-03-08] MEDS: METHYLPREDNISOLONE SOD SUCC 40MG/ML 1ML IVP SCH ×4 (00:01→18:10)
[2020-03-08] MEDS: PHARMACY COMMUNICATION MISC SCH ×3 (01:27→05:33)
[2020-03-08 05:24] LABS: BASOPHILS % (AUTO) 0.2 % (0.0-5.0); HEMATOCRIT 40.3 % (42-54); LYMPHOCYTES % (AUTO) 2.3 % (21.0-51.0); MEAN CORPUSCULAR HEMOGLOBIN 28.9 pg (27.0-33.0); MEAN CORPUSCULAR HGB CONC 33.3 g/dL (32.0-36.0); MONOCYTES % (AUTO) 1.9 % (3.0-13.0); NEUTROPHILS % (AUTO) 94.6 % (40.0-77.0); PLATELET COUNT (AUTO) 215 K/uL (130-400); RED BLOOD CELL COUNT(AUTO) 4.63 MIL/uL (4.50-6.20); RED CELL DISTRIBUTION WIDTH 13.9 % (11.0-15.5); WHITE BLOOD COUNT (AUTO) 23.4 K/uL (4.8-10.8)
[2020-03-08 06:03] LABS: CREATININE 0.9 mg/dL (0.5-1.5); CRP QUANTITATIVE 16.8 mg/L (0.00-9.0); POTASSIUM 4.6 mmol/L (3.5-5.1)
[2020-03-08] MEDS: INSULIN LISPRO 100 UNIT/ML 3ML SQ SCH ×7 (06:37→20:48)
[2020-03-08] MEDS: ENOXAPARIN SODIUM 100 MG/1 ML SQ SCH ×2 (09:01→20:39)
[2020-03-08] MEDS: FAMOTIDINE/PF 20 MG/2 ML VIAL IV SCH (09:01)
[2020-03-08] MEDS: ASCORBIC ACID 500 MG TAB PO SCH (09:01)
[2020-03-08] MEDS: DOCUSATE SODIUM 100 MG CAP PO SCH ×2 (09:01→20:38)
[2020-03-08] MEDS: BISACODYL 5 MG TABLET.DR PO SCH (09:01)
[2020-03-08] MEDS: ZINC SULFATE 220 CAPSULE PO SCH (12:55)
[2020-03-08] MEDS: INSULIN GLARGINE 100 UNITS/ML 10 ML VIAL SQ SCH (20:48)
[2020-03-08] MEDS ORDERED: MORPHINE SULFATE 2 MG/ML 1ML SYG IVP ONE (22:15)
[2020-03-09] MEDS: METHYLPREDNISOLONE SOD SUCC 40MG/ML 1ML IVP SCH ×2 (02:20→08:12)
[2020-03-09 03:56] VITALS: BP 126/89
[2020-03-09 05:55] LABS: BASOPHILS % (AUTO) 0.2 % (0.0-5.0); HEMATOCRIT 38.7 % (42-54); LYMPHOCYTES % (AUTO) 2.8 % (21.0-51.0); MEAN CORPUSCULAR HEMOGLOBIN 29.2 pg (27.0-33.0); MEAN CORPUSCULAR HGB CONC 33.9 g/dL (32.0-36.0); MEAN CORPUSCULAR VOLUME 86.2 fL (79-99); NEUTROPHILS % (AUTO) 93.8 % (40.0-77.0); PLATELET COUNT (AUTO) 193 K/uL (130-400); RED BLOOD CELL COUNT(AUTO) 4.49 MIL/uL (4.50-6.20); RED CELL DISTRIBUTION WIDTH 13.8 % (11.0-15.5); WHITE BLOOD COUNT (AUTO) 28.5 K/uL (4.8-10.8)
[2020-03-09 06:19] LABS: CREATININE 1.4 mg/dL (0.5-1.5); CRP QUANTITATIVE 26.9 mg/L (0.00-9.0); POTASSIUM 4.7 mmol/L (3.5-5.1)
[2020-03-09] MEDS: INSULIN LISPRO 100 UNIT/ML 3ML SQ SCH ×8 (07:30→22:45)
[2020-03-09 08:00] VITALS: BP 135/84
[2020-03-09] MEDS: BISACODYL 5 MG TABLET.DR PO SCH (08:37)
[2020-03-09] MEDS: DOCUSATE SODIUM 100 MG CAP PO SCH ×2 (08:37→22:01)
[2020-03-09] MEDS: FAMOTIDINE/PF 20 MG/2 ML VIAL IV SCH (08:37)
[2020-03-09] MEDS: ASCORBIC ACID 500 MG TAB PO SCH (08:37)
[2020-03-09] MEDS: ENOXAPARIN SODIUM 100 MG/1 ML SQ SCH (08:38)
[2020-03-09] MEDS ORDERED: COLCHICINE 0.6 MG TABLET PO SCH (09:15)
[2020-03-09] MEDS: METHYLPREDNISOLONE SOD SUCC 125MG/2ML VIAL IVP SCH ×3 (09:15→22:01)
[2020-03-09] MEDS: ENOXAPARIN SODIUM 80 MG/0.8 ML SQ SCH (09:30)
[2020-03-09 11:00] VITALS: BP 133/89
[2020-03-09] MEDS ORDERED: COLCHICINE 0.6 MG TABLET ONE (14:20)
[2020-03-09] MEDS: ZINC SULFATE 220 CAPSULE PO SCH (14:21)
[2020-03-09 15:00] VITALS: BP 128/82
--- NOTE | 2020-03-09 15:30 | NUR ---
RT attempted to wean to CPAP as ordered by Dr. Lemon and nurse attempted to prone pt. Pt became very anxious and uncomfortable, O2 sats dropped to mid 80's. Pt grunting w labored respirations. Rt had to place pt back on BiPap at previous settings. Pt refused to stay prone and was placed back in supine position, after which pt became more relaxed with unlabored respirations, O2 sats 96%.
[2020-03-09 20:39] VITALS: BP 124/67
[2020-03-09] MEDS: INSULIN GLARGINE 100 UNITS/ML 10 ML VIAL SQ SCH (22:46)
[2020-03-09] MEDS ORDERED: ALPRAZOLAM 0.25 MG TABLET PO ONE (23:45)
[2020-03-10] VITALS (36 sets, daily range): BP systolic 5–143; BP diastolic 3–81
[2020-03-10] MEDS ORDERED: NOREPINEPHRINE 4MG/NS 250ML 250 ML IV ONE (00:02)
[2020-03-10 00:16] LABS: ABG BASE EXCESS -28.8 mmol/L (-2.0-3.0); ABG HCO3 6.7 mmol/L (21.0-28.0); ABG OXYGEN SATURATION 96.7 % (95.0-99.0); ABG PCO2 54 mmHg (35-48)
[2020-03-10] MEDS ORDERED: SODIUM BICARB 50MEQ 50ML VIAL ONE ×2 (00:21→01:33)
[2020-03-10] MEDS ORDERED: FENTANYL 2500MCG+NS 250ML 250 ML IV ONE (00:43)
[2020-03-10] MEDS ORDERED: VASOPRESSIN 20 UNITS in SODIUM CHLORIDE 0.9% 100 ML IV PRN (01:00)
[2020-03-10] MEDS ORDERED: SODIUM BICARB 50MEQ 50ML VIAL IV STA (01:00)
[2020-03-10] MEDS ORDERED: MIDAZOLAM 50MG-0.9% NS 50ML 50 ML BAG IV SCH (01:00)
[2020-03-10] MEDS ORDERED: FENTANYL CITRATE PF 0.05 MG/ML 1,000 MCG in SODIUM CHLORIDE 0.9% 100 ML IVPB SCH (01:00)
[2020-03-10] MEDS ORDERED: NOREPINEPHRINE 4MG/NS 250ML 250 ML IV PRN (01:00)
--- NOTE | 2020-03-10 01:09 | NUR ---
patient had a drop in BP and was not responding to voice or sternal rub. Patient started to loose his respiratory drive. [facility]by TRAN called and ordered for patient to be intubated. Once intubated, patient was moved to 207. Dr. Lemon called and ordered Art line and central line placement. STAFF CONSULTANT paged to insert lines. Patient stable on ventilator settings, will continue to monitor.
[2020-03-10] MEDS ORDERED: MIDAZOLAM HCL 50 MG in SODIUM CHLORIDE 0.9% 50 ML IV SCH (01:15)
[2020-03-10] MEDS ORDERED: ROCURONIUM 10MG/1ML SYR 10 MG/ML ML ONE (01:21)
[2020-03-10] MEDS: METHYLPREDNISOLONE SOD SUCC 125MG/2ML VIAL IVP SCH ×3 (03:15→18:00)
[2020-03-10] MEDS ORDERED: SODIUM BICARB 50MEQ 50ML VIAL IV ONE (03:34)
[2020-03-10] MEDS ORDERED: CALCIUM CHLORIDE 100 MG/ML 10 ML SYG IVP SCH (03:45)
[2020-03-10] MEDS: COLCHICINE 0.6 MG TABLET PO SCH ×2 (04:00→10:01)
[2020-03-10] MEDS: SODIUM BICARB 8.4% 50ML SYRING 150 MEQ in DEXTROSE 5%-WATER 1,000 ML IV SCH ×2 (04:45→13:39)
[2020-03-10] MEDS ORDERED: SODIUM CHLORIDE 0.9% 250 ML IV ONE ×2 (05:05→07:34)
[2020-03-10 06:23] LABS: BASOPHILS % (AUTO) 0.2 % (0.0-5.0); EOSINOPHILS % (AUTO) 0.4 % (0.0-8.0); HEMATOCRIT 29.3 % (42-54); LYMPHOCYTES % (AUTO) 2.4 % (21.0-51.0); MEAN CORPUSCULAR HEMOGLOBIN 29.6 pg (27.0-33.0); MEAN CORPUSCULAR HGB CONC 31.4 g/dL (32.0-36.0); MEAN CORPUSCULAR VOLUME 94.2 fL (79-99); MONOCYTES % (AUTO) 1.7 % (3.0-13.0); NEUTROPHILS % (AUTO) 90.7 % (40.0-77.0); PLATELET COUNT (AUTO) 120 K/uL (130-400); RED BLOOD CELL COUNT(AUTO) 3.11 MIL/uL (4.50-6.20); RED CELL DISTRIBUTION WIDTH 14.2 % (11.0-15.5)
[2020-03-10 06:51] LABS: WHITE BLOOD COUNT (AUTO) 34.3 K/uL (4.8-10.8)
[2020-03-10 07:25] LABS: CREATININE 3.6 mg/dL (0.5-1.5); CRP QUANTITATIVE 17.6 mg/L (0.00-9.0)
[2020-03-10] MEDS ORDERED: NOREPINEPHRINE BITARTRATE 32 MG in SODIUM CHLORIDE 0.9% 250 ML IV PRN (07:30)
[2020-03-10] MEDS ORDERED: NOREPINEPHRINE BITARTRATE 1 MG/1 ML ML IV ONE (07:33)
[2020-03-10] MEDS ORDERED: VANCOMYCIN PROTOCOL PER PHARMACY IV SCH (08:15)
[2020-03-10] MEDS ORDERED: MEROPENEM 1 GM VIAL IVP SCH (08:15)
[2020-03-10] MEDS ORDERED: RENAL DOSE IV PRN (08:15)
[2020-03-10] MEDS ORDERED: EPINEPHRINE 10 MG in SODIUM CHLORIDE 0.9% 240 ML IV PRN (08:30)
[2020-03-10] MEDS ORDERED: COMPOUND IV REFRIGERATED 1 EACH IVSOLN MISC PRN (08:30)
[2020-03-10 08:31] LABS: LYMPHOCYTES % (MANUAL) 4 % (22-44); MAN.DIFF COMMENT-IMPRESSION MANUAL DIFFERENTIAL; MONOCYTES % (MANUAL) 2 % (2-9); POTASSIUM 6.1 mmol/L (3.5-5.1); SEGMENTED NEUTROPHILS % 94 % (40-70)
[2020-03-10 08:32] LABS: PLATELET MORPHOLOGY COMMENT SLIGHTLY DECREASED
[2020-03-10] MEDS ORDERED: VANCOMYCIN 1.25 GM in SODIUM CHLORIDE 0.9% 250 ML IV SCH (09:00)
[2020-03-10 09:45] LABS: ABG BASE EXCESS -22.2 mmol/L (-2.0-3.0); ABG HCO3 10.3 mmol/L (21.0-28.0); ABG OXYGEN SATURATION 87.9 % (95.0-99.0); ABG PCO2 50 mmHg (35-48)
[2020-03-10] MEDS: ENOXAPARIN SODIUM 80 MG/0.8 ML SQ SCH (10:01)
[2020-03-10] MEDS: ASCORBIC ACID 500 MG TAB PO SCH (10:01)
[2020-03-10] MEDS: DOCUSATE SODIUM 100 MG CAP PO SCH (10:01)
[2020-03-10] MEDS: BISACODYL 5 MG TABLET.DR PO SCH (10:02)
[2020-03-10] MEDS: FAMOTIDINE/PF 20 MG/2 ML VIAL IV SCH (10:03)
[2020-03-10] MEDS: INSULIN LISPRO 100 UNIT/ML 3ML SQ SCH ×6 (10:15→17:00)
[2020-03-10] MEDS: ZINC SULFATE 220 CAPSULE PO SCH (12:00)
[2020-03-10] MEDS ORDERED: DEXTROSE 50%-WATER 50 ML DISP.SYRIN IV ONE (17:45)
--- NOTE | 2020-03-11 01:14 | NUR ---
pt at 03/10/20 at 2344 Informed and daughter. consula ask for me to throw all belongings away and her son will be here in the Am for pt wallet. I placed wallet in biohazard bag and put pt label on it and gave to [place] in security. home notified and will send some to picker and packer body. PT was not a candidate for organ donor.
== END 2020-03-10 23:44 | disposition expired | DRG 208 ==
LOC: EDH 14:32 → EDHIP 19:10 → 2DH 02-23 12:33 → 2BH 03-10 00:12
PROVIDERS: ADMIT Internal Medicine; ATTEND Internal Medicine
PROC: 5A09357 Assistance with Respiratory Ventilation, Less than 24 Consecutive Hours, Continuous Positive Airway Pressure (ICD-10-PCS; 2020-02-26)
PROC: 30233K1 Transfusion of Nonautologous Frozen Plasma into Peripheral Vein, Percutaneous Approach (ICD-10-PCS; principal; 2020-03-03)
PROC: 5A09457 Assistance with Respiratory Ventilation, 24-96 Consecutive Hours, Continuous Positive Airway Pressure (ICD-10-PCS; 2020-03-08)
PROC: 5A1935Z Respiratory Ventilation, Less than 24 Consecutive Hours (ICD-10-PCS; 2020-03-10)
PROC: 0BH17EZ Insertion of Endotracheal Airway into Trachea, Via Natural or Artificial Opening (ICD-10-PCS; 2020-03-10)
DX: U07.1 COVID-19 (principal); J12.89 Other viral pneumonia; J96.01 Acute respiratory failure with hypoxia; N17.9 Acute kidney failure, unspecified; I10 Essential (primary) hypertension; D64.9 Anemia, unspecified; E11.65 Type 2 diabetes mellitus with hyperglycemia; E66.9 Obesity, unspecified; E78.5 Hyperlipidemia, unspecified; E87.5 Hyperkalemia; Z66 Do not resuscitate; M19.90 Unspecified osteoarthritis, unspecified site; T38.0X5A Adverse effect of glucocorticoids and synthetic analogues, initial encounter; Z68.31 Body mass index [BMI] 31.0-31.9, adult; Z79.4 Long term (current) use of insulin; Z88.8 Allergy status to other drugs, medicaments and biological substances; Z91.041 Radiographic dye allergy status; Y92.89 Other specified places as the place of occurrence of the external cause
CPT/HCPCS: 31500; 36415; 36600; 71045; 80048; 80053; 81001; 82435; 82550; 82728; 82803; 82947; 82948; 83605; 83615; 83735; 83874; 83880; 84100; 84132; 84145; 84295; 84484; 85018; 85025; 85378; 85384; 85610; 85730; 86140; 86850; 86900; 86901; 86927; 87040; 87077; 87088; 87186; 87804; 93005; 93970; 94002; 94660; G0378; J0171; J0360; J1100; J1650; J1815; J2185; J2405; J2543; J2920; J2930; J3010; J3370; J3490; J7050; J7070; J8540; P9017; U0003